=== PATIENT | female | born 1930 | race Caucasian/White ===

== ENCOUNTER 2017-05-01 04:01 | Inpatient (IN) | payer MEDICARE ==
--- NOTE | ~2017-05-01 | DS ---
Discharge Summary [facility] [address] [place]. [address] NAME: SANGEETA ZIEGLER : 31 STATUS : DIS IN PAT#: [id number] AGE: 86 ADM/REG DATE : 05/01/17 MR#: [id number] REPORT SERV DATE: 05/08/17 DICTATED BY: BRIANA SCHMITZ DATE: 05/03/17 REPORT STATUS : Draft TRANSCRIBED BY: MODTrey DATE: 05/03/17 ADMISSION DATE: 05/01/2017 DISCHARGE DATE: 05/03/2017 CONSULTATION: Orthopedic Surgery, Dr. Dion Messer. Cardiology, Dr. Todd. INVASIVE PROCEDURE: None. DISCHARGE DIAGNOSES: 1. Postoperative back pain. 2. Status post L3-4, L4-L5 simple decompression through unilateral approach with bilateral decompression. 3. Small postoperative hematoma. 4. Demand ischemia. 5. Leukocytosis secondary to steroid use. 6. Mild hyponatremia. DISCHARGE CONDITION: Stable. IMAGING: MRI lumbar spine, impression: 1. Fluid collection within the posterior spinal canal extending from approximately T12 to L2, compresses the cauda equina and is consistent with hematoma. 2. Recent L3 and L4 left laminectomy with small hematoma in the surgical site outside the spinal cord. 3. Degenerative disc findings as dictated above. HISTORY OF PRESENT ILLNESS: For detailed HPI, please make reference to Dr. Shubham Pearce's dictation on 05/01/2017. In brief, this is an 86-year-old female with medical history of coronary artery disease with prior PCI to the left circumflex, diabetes mellitus type 2, hypertension, hypothyroidism and chronic back pain secondary to lumbar spinal stenosis, who recently underwent L3-L5 hemilaminotomy, partial facetectomy, foraminotomy and bilateral decompression on 04/30/2017, who presented back to the emergency room with complaints of intractable lower back pain radiating to both lower extremities with nausea and vomiting. In the ER, temperature was 99.9, pulse was 125 beats per minute, respiratory rate was 26, blood pressure was 190/79. Physical exam was noted for dry, clean incision on the lower back with no palpable fluid collections. Neurologic examination was limited due to severe pain. An assessment of postop intractable back pain was made in the ER. The patient was admitted to the Hospitalist Service. HOSPITAL COURSE: 1. Intractable back pain. The patient underwent an MRI during the course of this admission that shows small hematoma from T12 to L2 as well as the surgical site area. The patient's orthopedic surgeon was consulted. After further review of the patient's imaging, it was noted that findings on MRI in keeping with patient's recent back surgical procedure. The patient was started on empiric IV steroid and IV narcotics for pain control. The patient's pain significantly improved. The patient's lower Discharge Summary [address] [address] NAME: SANGEETA ZIEGLER : 31 STATUS : DIS IN PAT#: [id number] AGE: 86 ADM/REG DATE : 05/01/17 MR#: [id number] REPORT SERV DATE: 05/08/17 DICTATED BY: BRIANA SCHMITZ DATE: 05/03/17 REPORT STATUS : Draft TRANSCRIBED BY: GRISEL DATE: 05/03/17 extremity weakness and severe back pain became significantly removed and became controlled with p.o. pain medications. The patient was subsequently discharged home to continue followup with orthopedic surgery and primary care physician as an outpatient. 2. Leukocytosis. No evidence of infection during the course of this admission noted. Elevated white blood cell count is likely related to steroid use. 3. Demand ischemia. The patient's troponin was mildly elevated. No evidence of chest pain. No acute ST-T wave changes. An echocardiogram was performed that showed normal left ventricular systolic function with an estimated ejection fraction of 55% to 60%. Normal ventricular size. The patient was advised to continue regular cardiac medication and continue follow up with Cardiology as an outpatient. DISCHARGE MEDICATION: 1. Norvasc 2.5 mg p.o. b.i.d. 2. Coreg 3.125 p.o. b.i.d. 3. Vitamin B12 250 mcg p.o. daily. 4. Vitamin D 1000 units p.o. daily. 5. Amlodipine 2.25 mg p.o. every morning. 6. Losartan 50 mg p.o. daily. 7. Aspirin 81 mg p.o. daily. 8. Plavix 75 mg p.o. daily. 9. Tramadol 50 mg p.o. t.i.d. p.r.n. DISCHARGE ACTIVITIES: As tolerated. DISCHARGE FOLLOWUP: Follow up with Orthopedic within two to three weeks of discharge. Follow up with primary care physician within one to two weeks of discharge. Greater than 35 minutes was used to prepare this patient's discharge, reconcile medication, and advised the patient on discharge plans and followup. DICTATED BY: MD BELEM RodO/TREVL Briana Schmitz MD / [id number] CC: MD Matt Rod M.D.
--- NOTE | ~2017-05-01 | CN ---
Consultation Report [facility] [address] [place]. [address] NAME: SANGEETA ZIEGLER : 31 STATUS : ADM IN PAT#: [id number] AGE: 86 ADM/REG DATE : 05/01/17 MR#: [id number] REPORT SERV DATE: 05/02/17 DICTATED BY: DION CONCEPCION DATE: 05/01/17 REPORT STATUS : Draft TRANSCRIBED BY: MODL DATE: 05/01/17 DATE OF CONSULTATION: CHIEF COMPLAINT: Back pain. HISTORY OF PRESENT ILLNESS: An 86-year-old female, well known to me. Just yesterday, she underwent an uncomplicated left L3-4 and L4-5 hemilaminotomy and bilateral decompression through unilateral approach for spinal stenosis. The surgery was uneventful, and the patient had indicated preoperatively desired to be able to go home if she could and I wrote the orders so that the patient had an option of either going home or she was having pain postoperatively that she could stay as an observation patient, and in fact, the additional orders were written for her to stay afterwards. The patient was in phase 2, sent home with a history of having been obtained today from the phase 2, nurse says the patient was up walking to the bathroom. She had urinated spontaneously, was not having any major complaints and she was discharged home. In the middle of the night, the patient had increased complaints of pain, and the pain was in the back, had some radiation to the buttocks. She was brought to the ER by ambulance and was then later admitted by the hospitalist. Contrary to what is indicated in the hospitalist history and physical. I was never contacted by anyone, not from phase 2 or not from the ER. Again, for reasons, I do not understand the hospitalist ordered an MRI scan. There is a small postoperative hematoma but clearly this happens in every case in which there simple decompression and I would have expected to see exactly what we saw. Again, for reasons, I do not understand, there was a stat order from the hospitalists for a spine consult. The patient this afternoon has had back pain. I did examine her and this will be included in the physical exam below. PHYSICAL EXAMINATION: She is alert and cooperative. She follows orders. She has no acute distress. The incision is covered and well. There is no major evidence of swelling, erythema, etc. She has pain just to the touch of her skin. She has pain if I touch her hips, but she has no motor deficit. Her motor strengths of the iliopsoas, quadriceps, hamstrings, tibialis anterior, and gastrocsoleus are 5/5 bilaterally. She already had absence of reflexes, and this has not changed. There is no evidence of myelopathy. The patient's MRI report has been reviewed. I talked to Dr. Becky Butler regarding this. I spoke to the nurse regarding this case approximately hour and a half ago and given orders to DC the Santos but Santos still in place. Past medical history, surgical history, current medications, allergies, social history, and family history is included in the chart. The physical exam is listed above. Consultation Report [id number] [facility] [place]. [address] NAME: SANGEETA ZIEGLER : 31 STATUS : ADM IN [facility]#: [id number] AGE: 86 ADM/REG DATE : 05/01/17 MR#: [id number] REPORT SERV DATE: 05/02/17 DICTATED BY: DION CONCEPCION DATE: 05/01/17 REPORT STATUS : Draft TRANSCRIBED BY: MODL DATE: 05/01/17 MRI and review and the report is included. ASSESSMENT: 1. Postoperative L3-4, L4-5 simple decompression through unilateral approach with a bilateral decompression. 2. Small postoperative hematoma with neurologic deficit. 3. Postoperative pain. RECOMMENDATIONS: At this time, Santos will be discontinued. The patient can be ambulating with physical therapy. There is no indications or reasons to do any kind of decompression. I have talked with the family including the daughter and the patient. They are both understanding of what has occurred over the last 24 hours. /GRISEL Dion Concepcion D.O. / [id number] CC: MD Matt Rod M.D.
--- NOTE | ~2017-05-01 | HP ---
History And Physical [facility] [address] [place]. [address] NAME: SANGEETA NAIR : 31 STATUS : ADM Foster PAT#: [id number] AGE: 86 ADM/REG DATE : 05/01/17 MR#: [id number] REPORT SERV DATE: 05/01/17 DICTATED BY: RADHA CHASE DATE: 05/01/17 REPORT STATUS : Draft TRANSCRIBED BY: GRISEL DATE: 05/01/17 DATE OF ADMISSION: 05/01/2017 POINT OF ENTRY: [facility] Emergency Department. PRIMARY LACEMAKER: Mima Todd M.D. CHIEF COMPLAINT: Back pain, nausea, vomiting. HISTORY OF PRESENT ILLNESS: Ms. Nair is an 86-year-old female with history of coronary artery disease with prior PCI to left circumflex, vdr-ptmqlfw-yruhumdkh diabetes mellitus type 2, hypertension, hypothyroidism, and chronic lower back pain secondary to lumbar spinal stenosis, who underwent L3-L5 hemilaminotomy, partial facetectomy, foraminotomy, and bilateral decompression on 04/30/2017. The patient presents back to the emergency department this evening with reports of intractable lower back pain with associated sciatica with associated nausea and vomiting. The patient and family who are at bedside states that while recovering in the PACU, she initially was doing well, was able to walk to the bathroom and urinate. However, before discharge from the PACU, she started to experience severe lower back pain with some associated nausea. Attempts to reach Dr. Messer to update him on her condition were unsuccessful and she was discharged to home. While at home, she continued to have severe lower back pain with associated nausea and vomiting. She was unable to tolerate or keep down any of her oral medications for pain control. Therefore, she was brought back to the emergency department. Initial evaluation in the emergency department notable for a heart rate of 125, blood pressure was stable, she is afebrile. Labs notable for a white count 12[address]. EKG was nonischemic, but her troponin was elevated at 0.27. She was given two rounds of Zofran and two rounds of Dilaudid with some significant improvement in her nausea and vomiting and only moderate improvement in her lower back pain. The patient remained tachycardic in the low 100s to 1 teens and she was subsequently admitted to the Hospitalist Service for further evaluation and management. She denies any chest pain, shortness of breath, palpitations. Her heart rate did seem to improve somewhat with the administration of Dilaudid and Zofran, but it is still tachycardic. REVIEW OF SYSTEMS: Comprehensive review of system is otherwise negative unless listed in history of present illness. PAST MEDICAL HISTORY: 1. Coronary artery disease with prior PCI to left circumflex. 2. Chronic systolic congestive heart failure with ejection fraction of 45% on left ventriculogram. History And Physical [address] [address] NAME: SANGEETA NAIR : 31 STATUS : ADM Foster PAT#: [id number] AGE: 86 ADM/REG DATE : 05/01/17 MR#: [id number] REPORT SERV DATE: 05/01/17 DICTATED BY: RADHA CHASE DATE: 05/01/17 REPORT STATUS : Draft TRANSCRIBED BY: MODTrey DATE: 05/01/17 3. Gqu-esbfpsi-xaarnycnd diabetes mellitus type 2. 4. Hypertension. 5. Hyperlipidemia. 6. Hypothyroidism. 7. History of right breast cancer, status post lumpectomy. 8. Lumbar spinal stenosis, status post lumbar decompression. SURGICAL HISTORY: 1. Right breast lumpectomy. 2. Bilateral cataract. 3. Tonsillectomy. 4. PCI. 5. L3-L5 bilateral decompression 04/30/[address] Messer. ALLERGIES: CIPROFLOXACIN, LIPITOR, FLAGYL, AND CODEINE. HOME MEDICATIONS: 1. Tylenol 325 mg q.6 hours. 2. Norvasc 2.5 mg daily. 3. Aspirin 81 mg daily. 4. Carvedilol 3.125 mg b.i.d. 5. Vitamin D 1000 units daily. 6. Plavix 75 mg daily. 7. Vitamin B12 500 mcg daily. 8. Ferrous sulfate 325 mg daily. 9. Hypromellose eye drops. 10.Levothyroxine 50 mcg daily. 11.Losartan 50 mg daily. 12.Lutein 10 mg q.a.m. 13.Metformin 500 mg b.i.d. 14.Bilberry 80 mg daily. 15.Nitroglycerin 0.4 mg sublingual p.r.n. 16.Chewable multivitamin two tabs daily. 17.Macrodantin 500 mg daily p.r.n. SOCIAL HISTORY: She denies any tobacco, alcohol, or illicits. FAMILY HISTORY: Mother with history of coronary artery disease and strokes. Father's history is unknown. Siblings with history of coronary artery disease. LABS AND IMAGIN. White count 16.2, hemoglobin is 12.1, hematocrit is 34.7, platelets 319. 2. INR 1.2. 3. Sodium is 134, potassium 3.6, chloride 100, carbon dioxide 24, BUN 7, creatinine 0.78, glucose is 181, calcium is 8.8, magnesium 1.7, protein 6.8, albumin 3.4, bilirubin is 0.5, ALT is 10, AST 25, alkaline phosphatase is 59. 4. Lipase is 91. History And Physical [address] [address] NAME: SANGEETA NAIR : 31 STATUS : ADM Foster PAT#: [id number] AGE: 86 ADM/REG DATE : 05/01/17 MR#: [id number] REPORT SERV DATE: 05/01/17 DICTATED BY: RADHA CHASE DATE: 05/01/17 REPORT STATUS : Draft TRANSCRIBED BY: GRISEL DATE: 05/01/17 5. Troponin initially 0.27 and to our recheck, troponin is now 0.26 with a CPK of 46, CK- MB of 7.1, and MB index of 1.5. 6. EKG per my review. Original EKG is sinus tachycardia with heart rate of 111 with no evidence of any acute ischemia or infarction. Repeat EKG approximately 1 hour later, also per my review, shows sinus tachycardia with heart rate of 115. Also with no evidence of any acute ischemia or infarction. When compared to prior EKGs other than heart rate differences, there are no acute changes. 7. Urinalysis: Specific gravity is 1.010. No evidence of any infection. PHYSICAL EXAMINATION: VITAL SIGNS: Temperature is 99.9 degrees Fahrenheit, pulse is 125, respirations 26, blood pressure 130/79. On recheck, now blood pressure is 151/87, pulse of 112, saturating 97% on room air. GENERAL: The patient is awake, alert, in no acute distress. Resting comfortably in bed. She is a well-developed, well-nourished, elderly female, who is in some mild-to- moderate distress from her back pain, but nontoxic appearing. HEENT: Atraumatic and normocephalic. Moist mucous membranes. Pupils are equal, round, reactive to light and accommodation. Extraocular eye movements are intact. No scleral icterus. NECK: No jugular venous distention. No carotid bruits. CARDIAC: Tachycardic rate, regular rhythm. No murmurs, rubs, or gallops. Normal S1, S2. LUNGS: Clear to auscultation bilaterally. No wheezes, rhonchi, or rales. ABDOMEN: Soft, nontender, nondistended. Good bowel sounds. No rebound, guarding, or rigidity. EXTREMITIES: Warm and well perfused. No cyanosis, clubbing, or edema. SKIN: Warm and dry. PSYCH: Affect appropriate. MUSCULOSKELETAL: Due to severe lower back pain, I was unable to assess her incision or palpate her lower back, but per ER physician, incision is clean, dry, and intact with no palpable fluid collections. ASSESSMENT AND PLAN: Ms. Nair is an 86-year-old female who is postop day #1 from L3-L5 bilateral decompression, who presents back with severe lower back pain with associated sciatic component with associated nausea and vomiting and instantly found to be tachycardic with an elevated troponin level of unclear etiology. PROBLEM LIST: 1. Intractable lower back pain. 2. Postop day #1 from L3-L5 bilateral decompression. 3. Nausea and vomiting. 4. Elevated troponin level. 5. Tachycardia. 6. Leukocytosis. 7. Hyponatremia. PLAN: 1. Intractable lower back pain. Given that she is postop day #1 from her L3-L5 History And Physical [address] [address] NAME: SANGEETA NAIR : 31 STATUS : ADM Foster PAT#: [id number] AGE: 86 ADM/REG DATE : 05/01/17 MR#: [id number] REPORT SERV DATE: 05/01/17 DICTATED BY: RADHA CHASE DATE: 05/01/17 REPORT STATUS : Draft TRANSCRIBED BY: MODL DATE: 05/01/17 decompression, we will defer all this to Dr. Messer, her primary surgeon. We will provide supportive care with IV narcotics overnight as well as antiemetics. 2. Nausea and vomiting. Unclear if this is due to anesthetic she received in the operating room versus secondary to intractable lower back pain. We will provide supportive care with antiemetics. This is already somewhat improved here in the emergency department. 3. Tachycardia. Unclear as to whether this is due to her intractable lower back pain or something else such as pulmonary embolism. Again she denies any chest pain or shortness of breath, she is not hypoxic. The tachycardia has improved somewhat, as we made her more comfortable with antiemetics and pain control. She does not feel as if she can transfer to the CT scan table for CT of the chest that her back pain is still severe. We will continue to monitor, as we address her pain control. Her Wells score is 3; therefore, she is intermediate probability. Given recent surgery, I think a D- dimer would be of low value as it likely would be positive. Should she remain tachycardic despite adequate pain control, I think that we need to readdress the need for CTA of the chest and/or empiric heparinization. 4. Elevated troponin level. I suspect this is all due to demand ischemia. EKG is nonischemic. She denies any chest pain or shortness of breath. Repeat cardiac enzymes are already starting to down trend. But given patient's history as well as recent surgery, we will consult the patient's primary processing associate, Dr. Todd, for assistance. Continue the patient's home aspirin, statin, and beta seth. 5. Leukocytosis, unclear etiology, likely related to recent surgery with possible intraoperative steroid receipt. We will continue to monitor urinalysis without evidence of infection. We will check a chest x-ray. 6. DVT prophylaxis. Heparin subcu. CODE STATUS: The patient wishes to be full code. JCB/MODL Radha Chase MD / [id number] CC: David Reyes M.D.
--- NOTE | ~2017-05-01 | CN ---
Consultation Report [facility] [address] [place]. [address] NAME: SANGEETA ZIEGLER : 31 STATUS : ADM IN PAT#: [id number] AGE: 86 ADM/REG DATE : 05/01/17 MR#: [id number] REPORT SERV DATE: 05/01/17 DICTATED BY: DEBBIE TODD DATE: 05/01/17 REPORT STATUS : Draft TRANSCRIBED BY: MODTrey DATE: 05/01/17 CARDIOLOGY CONSULTATION DATE OF CONSULTATION: 05/01/2017 REASON FOR CONSULTATION: Abnormal troponin. HISTORY OF PRESENT ILLNESS: The patient is an 86-year-old female with known coronary artery disease with previous stenting of the left circumflex coronary artery with drug-eluting stents in 02/2014. She 24 hours ago underwent a laminectomy. She has had debilitating, unrelenting back pain since that time. She denies any chest pain. She denies dyspnea on exertion, orthopnea, or paroxysmal nocturnal dyspnea. She denies palpitations, presyncope, or syncope. For unclear reasons, in the course of evaluation in the emergency department, she had troponin which was minimally elevated. An electrocardiogram demonstrated no evidence of ischemia nor injury pattern. Consultation is requested due to the elevated troponin. In the interim, since her admission, an additional troponin has been performed. Serial troponins are minimally elevated at 0.27 and 0.26. PAST MEDICAL HISTORY: 1. Coronary artery disease, status post drug-eluting stents x2 to the left circumflex coronary artery on 02/11/2014. 2. Mixed hyperlipidemia-with intolerance to all statins. The patient has previously declined a PCSK9 inhibitor for treatment of the same. 3. Hypertension. 4. Diabetes mellitus type 2. 5. Degenerative disk disease. 6. Bilateral breast carcinoma. 7. Hypothyroidism. ALLERGIES: 1. INTOLERANCE TO ALL STATINS WITH SEVERE MYALGIAS. 2. CODEINE WITH NAUSEA AND VOMITING. 3. METRONIDAZOLE WITH NAUSEA, VOMITING, AND DIARRHEA. 4. CIPROFLOXACIN WITH NAUSEA, VOMITING, AND DIARRHEA. REVIEW OF SYSTEMS: Negative for all organ systems, except per the history of present illness. SOCIAL HISTORY: No prior history of tobacco, alcohol, or illicit drug use. FAMILY HISTORY: Brother with myocardial infarction in older age with unrelated at age 80. Mother with myocardial infarction at age 91, unrelated to myocardial infarction. Mother also with stroke associated with myocardial infarction at age 91. Brother with myocardial infarction in his 50s, and a second brother with coronary artery bypass grafting Consultation Report [place] [id number] [place]. [address] NAME: SANGEETA ZIEGLER : 32 STATUS : ADM IN PAT#: [id number] AGE: 86 ADM/REG DATE : 05/01/17 MR#: [id number] REPORT SERV DATE: 05/01/17 DICTATED BY: DEBBIE TODD DATE: 05/01/17 REPORT STATUS : Draft TRANSCRIBED BY: GRISEL DATE: 05/01/17 in his 50s. PHYSICAL EXAMINATION: VITAL SIGNS: Blood pressure 134/79, pulse 118 and regular, respirations 20 and unlabored. GENERAL: Elderly female, in severe distress secondary to back pain. HEENT: Normal. NECK: Supple. No JVD or bruit. Normal carotid upstroke bilaterally. No thyromegaly. LUNGS: Clear to auscultation and percussion. No wheezes, rales, or rhonchi. No use of accessory muscles. CARDIOLOGY: Regular rhythm. Normal S1, S2. No thrill. No murmur, rubs, or gallops. Normal PMI. ABDOMEN: Bowel sounds positive. Soft, nontender, and nondistended. No masses or aortic bruits. No hepatosplenomegaly or hepatojugular reflux. EXTREMITIES: No edema. Normal pulses. No clubbing or cyanosis. SKIN: Warm and dry. No significant rash. NEUROLOGIC: Alert and oriented x3. Appropriate mood. LABORATORY DATA: Unremarkable with the exception of serial troponins of 0.27 to 0.28. EKG: Sinus tachycardia with no ischemic nor injury pattern noted. IMPRESSION: 1. Troponin elevation-consistent with demand ischemia. We recommend continuation of cardiac medications. No indication for further treatment nor invasive evaluation. 2. Severe back pain secondary to complications of recent laminectomy. Postoperative hematoma reported by MRI. The patient is on low-dose aspirin and Plavix. She has remote cardiac stenting. Should it be deemed necessary to discontinue these, there would be no cardiac contraindication to the same. 3. Echocardiogram has been ordered to evaluate cardiac structure and function and rule out regional wall motion abnormality. If the echo is unchanged from previous echos, we will sign off and be available as necessary. Thank you for the opportunity to see the patient in consultation. KYUNGL/MODL Mima Todd M.D. / [id number] CC: MD Matt Rod M.D.
[2017-05-01 03:27] LABS: BASOPHILS 0.1 %; BASOPHILS ABSOLUTE 0.01 10/3/uL (0.0-0.16); EOSINOPHILS 0 %; HEMATOCRIT 34.7 % (36.0-48.0); HEMOGLOBIN 12.1 g/dL (12.0-16.0); IMMATURE GRANULOCYTES 0.2 %; IMMATURE GRANULOCYTES ABSOLUTE 0.03 10/3/uL (0.0-0.11); LYMPHOCYTES 7.4 %; LYMPHOCYTES ABSOLUTE 1.19 10/3/uL (0.67-4.30); MEAN CORPUSCULAR HEMOGLOB 29.8 pg (26.0-34.0); MEAN CORPUSCULAR VOLUME 85.5 fL (80-100); MONOCYTES ABSOLUTE 1.45 10/3/uL (0.21-1.20); NEUTROPHILS 83.3 %; PLATELET COUNT 319 10/3/uL (150-400); RBC DISTRIBUTION WIDTH 13.3 % (12.0-16.0); RED CELL COUNT 4.06 10/6/uL (4.0-5.6)
[2017-05-01 03:30] LABS: ER CBC TAT 0 Hrs 07 Mins; MANUAL DIFF NO %; MEAN CORPUS HGB CONC 34.9 g/dL (32.0-36.0); WHITE BLOOD CELLS 16.2 10/3/uL (4.5-10.5)
[2017-05-01 03:34] LABS: INTERNATIONAL NORMAL RATI 1.2 UNITS (-); PARTIAL THROMBO TIME 27.3 SEC (22.5-37.2); PROTIME (NOT ORD) 14.7 SEC (12.0-14.5)
[2017-05-01 03:42] LABS: ALBUMIN 3.4 G/DL (3.5-5.0); ALKALINE PHOSPHATASE 59 U/L (45-117); BUN (BLOOD UREA NITROGEN) 7 MG/DL (6-23); CALCIUM, SERUM 8.8 MG/DL (8.5-10.4); CHEST PAIN PROFILE TAT 0 Hrs 19 Mins; CHLORIDE, SERUM 100 MMOL/L (96-112); CO2 (CARBON DIOXIDE) 24 MMOL/L (24-34); CREATININE 0.78 MG/DL (0.55-1.02); DIRECT BILIRUBIN 0.1 MG/DL (0.0-0.4); GFR AFRICAN AMERICAN 80 ML/MIN (>=60); GFR NON AFRICAN AMERICAN 69 ML/MIN (>=60); GLUCOSE, SERUM 181 MG/DL (60-99); INDIRECT BILIRUBIN(NOT ORDER) 0.4 MG/DL (0.1-0.9); POTASSIUM, SERUM 3.6 MMOL/L (3.5-5.3); SGOT(AST) 25 U/L (5-40); SGPT(ALT) 16 U/L (5-65); SODIUM, SERUM 134 MMOL/L (135-148); TOTAL BILIRUBIN 0.5 MG/DL (0-1.2); TOTAL PROTEIN 6.8 G/DL (6.0-8.5); TROPONIN I 0.27 NG/ML (<0.05)
[~2017-05-01 04:01] MED LIST: ADVIL PO; ASAB PO; B12250T PO; BACDS PO; BAYER500 MG PO; BILBERRY80 MG PO; BRILINTA90 MG PO; COREG3 PO; COZ50 PO; FERROUS SULF325 M1 PO; GENTEAL 15 ML O15 ML; GENTEAL 15 ML O15 ML OPH; GLUCPH PO; LEVOTHYROXIN50 MCG PO; LIPITOR20 PO; LIPITOR40 PO; LOP25 PO; LUTEIN10 MG PO; MACRODANTIN PO; MVI PO; NITROSTAT0.4 MG SL; NOLV10 PO; NORV25 PO; NORV5 PO; PLAVIX PO; PRIN5 PO; SYN.05 PO; T PO; VITAMIN D1000 UNI1 PO; VITE PO
[2017-05-01 04:21] LABS: ASCORBIC ACID (UR NOT ORDER) NEG (NEG); BILIRUBIN, URINE NEGATIVE (NEG); ER URINALYSIS TAT 0 Hrs 09 Mins; KETONE, URINE 20 MG/DL (NEG); LEUKOCYTE ESTERASE(NOT OR NEG (NEG); NITRITE (URINE) NEG (NEG); WBC (NOT ORDERED) (RFLEX) 1 (0-5)
[2017-05-01 05:49] LABS: CK-MB 7.1 NG/ML
[2017-05-01 05:50] LABS: CKMB INDEX (NOT ORD) 1.5; CPK 486 U/L (0-200)
[2017-05-01 05:51] LABS: TROPONIN I 0.26 NG/ML (<0.05)
[2017-05-01 07:25] LABS: PROCALCITONIN <0.05 ng/mL (<0.5)
[2017-05-01 10:34] LABS: TROPONIN I 0.21 NG/ML (<0.05)
[2017-05-01 12:11] LABS: CK-MB 6.5 NG/ML
[2017-05-01 12:12] LABS: CKMB INDEX (NOT ORD) 1.3
[2017-05-02 06:13] LABS: BASOPHILS 0 %; EOSINOPHILS 0 %; HEMATOCRIT 33.6 % (36.0-48.0); HEMOGLOBIN 11.4 g/dL (12.0-16.0); IMMATURE GRANULOCYTES 0.4 %; IMMATURE GRANULOCYTES ABSOLUTE 0.07 10/3/uL (0.0-0.11); LYMPHOCYTES 4.6 %; LYMPHOCYTES ABSOLUTE 0.88 10/3/uL (0.67-4.30); MANUAL DIFF NO %; MEAN CORPUS HGB CONC 33.9 g/dL (32.0-36.0); MEAN CORPUSCULAR HEMOGLOB 29.2 pg (26.0-34.0); MEAN CORPUSCULAR VOLUME 86.2 fL (80-100); MEAN PLATELET VOLUME 9.3 fL (9.2-13.0); MONOCYTES 3.1 %; NEUTROPHILS 91.9 %; NEUTROPHILS ABSOLUTE 17.78 10/3/uL (2.02-8.40); PLATELET COUNT 281 10/3/uL (150-400); RBC DISTRIBUTION WIDTH 13.5 % (12.0-16.0); WHITE BLOOD CELLS 19.3 10/3/uL (4.5-10.5)
[2017-05-02 06:28] LABS: A/G RATIO 0.7 (0.7-1.9); ALBUMIN 2.8 G/DL (3.5-5.0); ALKALINE PHOSPHATASE 65 U/L (45-117); BUN (BLOOD UREA NITROGEN) 9 MG/DL (6-23); CALCIUM, SERUM 8.8 MG/DL (8.5-10.4); CHLORIDE, SERUM 100 MMOL/L (96-112); CO2 (CARBON DIOXIDE) 29 MMOL/L (24-34); CREATININE 0.64 MG/DL (0.55-1.02); GFR AFRICAN AMERICAN 94 ML/MIN (>=60); GFR NON AFRICAN AMERICAN 81 ML/MIN (>=60); GLOBULIN 3.8 G/DL (2.5-4.1); GLUCOSE, SERUM 212 MG/DL (60-99); POTASSIUM, SERUM 3.8 MMOL/L (3.5-5.3); SGOT(AST) 16 U/L (5-40); SGPT(ALT) 16 U/L (5-65); SODIUM, SERUM 135 MMOL/L (135-148); TOTAL BILIRUBIN 0.4 MG/DL (0-1.2); TOTAL PROTEIN 6.6 G/DL (6.0-8.5)
[2017-05-03 08:05] LABS: BASOPHILS 0.1 %; BASOPHILS ABSOLUTE 0.01 10/3/uL (0.0-0.16); EOSINOPHILS 0 %; HEMATOCRIT 33.1 % (36.0-48.0); HEMOGLOBIN 11.3 g/dL (12.0-16.0); IMMATURE GRANULOCYTES 0.3 %; IMMATURE GRANULOCYTES ABSOLUTE 0.05 10/3/uL (0.0-0.11); LYMPHOCYTES 5.4 %; LYMPHOCYTES ABSOLUTE 1.05 10/3/uL (0.67-4.30); MEAN CORPUS HGB CONC 34.1 g/dL (32.0-36.0); MEAN CORPUSCULAR HEMOGLOB 29.2 pg (26.0-34.0); MEAN CORPUSCULAR VOLUME 85.5 fL (80-100); MEAN PLATELET VOLUME 9.6 fL (9.2-13.0); MONOCYTES 3.1 %; MONOCYTES ABSOLUTE 0.61 10/3/uL (0.21-1.20); NEUTROPHILS 91.1 %; NEUTROPHILS ABSOLUTE 17.76 10/3/uL (2.02-8.40); PLATELET COUNT 302 10/3/uL (150-400); RBC DISTRIBUTION WIDTH 13.7 % (12.0-16.0); RED CELL COUNT 3.87 10/6/uL (4.0-5.6); WHITE BLOOD CELLS 19.5 10/3/uL (4.5-10.5)
[2017-05-03 08:06] LABS: MANUAL DIFF NO %
[2017-05-03 08:49] LABS: CALCIUM, SERUM 8.5 MG/DL (8.5-10.4); CHLORIDE, SERUM 101 MMOL/L (96-112); CO2 (CARBON DIOXIDE) 28 MMOL/L (24-34); CREATININE 0.73 MG/DL (0.55-1.02); GFR AFRICAN AMERICAN 87 ML/MIN (>=60); GFR NON AFRICAN AMERICAN 75 ML/MIN (>=60); PHOSPHORUS, SERUM 1.8 MG/DL (2.5-4.5); POTASSIUM, SERUM 3.8 MMOL/L (3.5-5.3); SODIUM, SERUM 135 MMOL/L (135-148)
[2017-05-03 08:51] LABS: BUN (BLOOD UREA NITROGEN) 16 MG/DL (6-23); GLUCOSE, SERUM 278 MG/DL (60-99)
[2017-05-03] MEDS ORDERED: MEDROLPAK4 PO (16:17)
== END 2017-05-03 17:22 | disposition home or self-care (01) | DRG 948 ==
LOC: ER 04:01 → 1SO 06:40
PROVIDERS: Hospitalist; Internal Medicine; Specialist
DX: G89.18 Other acute postprocedural pain (principal); I24.8 Other forms of acute ischemic heart disease; I50.22 Chronic systolic (congestive) heart failure; G83.4 Cauda equina syndrome; E87.1 Hypo-osmolality and hyponatremia; I11.0 Hypertensive heart disease with heart failure; M96.840 Postprocedural hematoma of a musculoskeletal structure following a musculoskeletal system procedure; R11.2 Nausea with vomiting, unspecified; Y83.8 Other surgical procedures as the cause of abnormal reaction of the patient, or of later complication, without mention of misadventure at the time of the procedure; M48.06 Spinal stenosis, lumbar region; T38.0X5A Adverse effect of glucocorticoids and synthetic analogues, initial encounter; I25.10 Atherosclerotic heart disease of native coronary artery without angina pectoris; D72.829 Elevated white blood cell count, unspecified; E11.65 Type 2 diabetes mellitus with hyperglycemia; R00.0 Tachycardia, unspecified; E03.9 Hypothyroidism, unspecified; E78.5 Hyperlipidemia, unspecified; Z79.82 Long term (current) use of aspirin; Z79.02 Long term (current) use of antithrombotics/antiplatelets; Z79.84 Long term (current) use of oral hypoglycemic drugs; Z79.899 Other long term (current) drug therapy; Z98.61 Coronary angioplasty status; Z85.3 Personal history of malignant neoplasm of breast; Z88.5 Allergy status to narcotic agent; Z88.1 Allergy status to other antibiotic agents; Z88.8 Allergy status to other drugs, medicaments and biological substances
CPT/HCPCS: 71010; 72148; 80048; 80053; 80076; 81001; 82550; 82553; 82962; 83690; 83735; 84100; 84145; 84484; 85025; 85610; 85730; 88304; 88311; 93005; 93288; 93306; 96374; 96376; 97116-GP; 97162-GP; 99285; A9270-GY; G8978-CL-GP; G8979-CK-GP; J0780; J1170; J2405